=== PATIENT | female | born 1990 | race Caucasian/White ===

== ENCOUNTER 2019-02-18 09:34 | Emergency (ER) | payer OTHER ==
--- NOTE | 2019-02-18 10:40 | ED ---
Abdominal Pain/Female - HPI Summary HPI Summary: Patient is a 28 y/o female who presents to the ED c/o abdominal pain. Last week she was on vacation when she began to experience central back pain. Patient was taking Ibuprofen for this pain while continuing to drink alcohol. This morning at 8:45 she began to have severe burning epigastric abdominal pain. The pain has somewhat subsided and is currently rated a 5/10 in severity. Patient denies any N/V/D. The pain is made better by lying flat, and made worse by sitting up straight. LNMP 02/08/19. - History of Current Complaint Chief Complaint: EDAbdPain Stated Complaint: ABD PAIN PER PT SISTER Time Seen by Provider: 02/18/19 10:35 Hx Obtained From: Patient Onset/Duration: Gradual Onset, Lasting Weeks - 1, Still Present Timing: Constant Severity Initially: Severe Severity Currently: Moderate Pain Intensity: 5 Pain Scale Used: 0-10 Numeric Location: Epigastric Character: Burning Aggravating Factor(s): Other: - Sitting up straight Alleviating Factor(s): Position - Lying flat Associated Signs and Symptoms: Positive: Back Pain. Negative: Nausea, Vomiting , Diarrhea Allergies/Adverse Reactions: Allergies Allergy/AdvReac Type Severity Reaction Status Date / Time No Known Allergies Allergy Verified 02/18/19 09:51 PMH/Surg Hx/FS Hx/Imm Hx Endocrine/Hematology History: Denies: Hx Diabetes Cardiovascular History: Denies: Hx Hypertension Infectious Disease History: No Infectious Disease History: Denies: Traveled Outside the [place] in Last 30 Days - Family History Known Family History: Positive: Other - gallbladder dz, ulcer dz - Social History Alcohol Use: Occasionally Hx Substance Use: No Substance Use Type: Reports: None Review of Systems Positive: Abdominal Pain. Negative: Vomiting, Diarrhea, Nausea Positive: Myalgia - mid-back All Other Systems Reviewed And Are Negative: Yes Physical Exam - Summary Physical Exam Summary: Appearance: Well appearing, no pain distress Skin: warm, dry, reflects adequate perfusion Head/face: normal Eyes: EOMI, CHER ENT: mucous membranes moist Neck: supple, non-tender Respiratory: CTA, breath sounds present Cardiovascular: RRR, pulses symmetrical Abdomen: non-tender, soft Bowel Sounds: present Musculoskeletal: normal, strength/ROM intact Neuro: normal, sensory motor intact, A&Ox3 Triage Information Reviewed: Yes Vital Signs On Initial Exam: Initial Vitals Temp Pulse Resp BP Pulse Ox 98.6 F 92 18 145/92 100 02/18/19 09:51 02/18/19 09:51 02/18/19 09:51 02/18/19 09:51 02/18/19 09:51 Vital Signs Reviewed: Yes Diagnostics - Vital Signs Vital Signs Temp Pulse Resp BP Pulse Ox 02/18/19 09:51 98.6 F 92 18 145/92 100 - Laboratory Result Diagrams: 02/18/19 10:55 02/18/19 10:55 Lab Statement: Any lab studies that have been ordered have been reviewed, and results considered in the medical decision making process. Re-Evaluation - Re-Evaluation First Eval Re-Evaluation Time: 11:23 Change: Improved Comment: Pt feels much better. Abdominal Pain Fem Course/Dx - Course Course Of Treatment: Nurse's notes reviewed. Patient with acute epigastric discomfort after drinking on vacation and then using ibuprofen for some back pain. Her pain was totally resolved after oral medications for gastritis. Continue same outpatient. - Diagnoses Differential Diagnosis: Positive: Gall Bladder Disease, Pancreatitis, Peptic Ulcer Disease, Pneumonia Provider Diagnoses: Gastritis Discharge - Sign-Out/Discharge Documenting (check all that apply): Patient Departure - Discharge Patient Received Moderate/Deep Sedation with Procedure: No - Discharge Plan Condition: Improved Disposition: HOME Prescriptions: Famotidine TAB* [Pepcid 20 MG TAB*] 20 mg PO BID #10 tab Pantoprazole TAB * [Protonix TAB*] 40 mg PO DAILY #30 tab Sucralfate TAB* [Carafate*] 1 gm PO ACHS #40 tab Patient Education Materials: Gastritis (ED) Referrals: [facility] [Outside] [facility] [Outside] Additional Instructions: avoid alcohol, caffeine, ibuprofen/Aleve and like medications. Avoid spicy foods in your diet. Maalox may help if medications are not controlling this. Return with vomiting blood, uncontrolled pain, worse, new symptoms or other concerns. He can follow-up with the [facility] in the next 2 days ' time and physician referral line was given to you. - Billing Disposition and Condition Condition: IMPROVED Disposition: Home - Attestation Statements Document Initiated by Scribe: Yes Documenting Scribe: Krys Mckeon Provider For Whom Scribe is Documenting (Include Credential): Jonathan Jaime MD Scribe Attestation: I, Krys Mckeon, scribed for Jonathan Jaime MD on 02/18/19 at 1922. Scribe Documentation Reviewed: Yes Provider Attestation: The documentation as recorded by the scribe, Krys Mckeon accurately reflects the service I personally performed and the decisions made by me, Jonathan Jaime MD Status of Scribe Document: Viewed
[2019-02-18] MEDS ORDERED: Al Hydrox/Mg Hydrox/Simet LIQ* 30 ML UDC PO ONE (10:41)
[2019-02-18] MEDS ORDERED: Famotidine TAB* 20 MG PO ONE (10:41)
[2019-02-18] MEDS ORDERED: Sucralfate TAB* 1 GM PO ONE (10:41)
[2019-02-18 11:09] LABS: ABS Basophils 0 10^3/ul (0-0.2); ABS Eosinophils 0.1 10^3/ul (0-0.6); ABS Lymphocytes 1.3 10^3/ul (1.0-4.8); ABS Monocytes 0.5 10^3/ul (0-0.8); ABS Neutrophils 5.2 10^3/ul (1.5-7.7); ABS Nucleated RBC 0 10^3/ul; Eosinophil % 1.4 %; Hematocrit 42 % (33-41); Hemoglobin 14.2 g/dL (12.0-16.0); Lymphocyte % 18.3 %; Mean Corpuscular HGB Conc 34 g/dL (31-36); Mean Corpuscular Hemoglobin 34 pg (27-31); Mean Corpuscular Volume 98 fL (80-97); Nucleated Red Blood Cells % 0; Platelet Count 246 10^3/uL (150-450); Red Blood Count 4.25 10^6 /uL (3.70-4.87); Red Cell Distribution Width 12 % (10.5-15); White Blood Count 7.2 10^3/uL (3.5-10.8)
[2019-02-18 11:16] LABS: Albumin 4.6 g/dL (3.2-5.2); Calcium 9.2 mg/dL (8.6-10.3); Total Bilirubin 1.1 mg/dL (0.2-1.0)
[2019-02-18 11:22] LABS: Albumin/Globulin Ratio 1.6 (1-3); BUN/Creatinine Ratio 19.7 (8-20); EGFR African American 128.1 (>60); EGFR Non-African American 105.9 (>60); Globulin 2.8 g/dL (2-4); Total Protein 7.4 g/dL (6.4-8.9)
[2019-02-18 11:37] VITALS: BP 125/77
== END 2019-02-18 11:36 | disposition home or self-care (01) ==
LOC: ED 09:34
DX: K29.70 Gastritis, unspecified, without bleeding (principal); M54.6 Pain in thoracic spine
CPT/HCPCS: 36415; 80053; 83690; 85025; 99282; A9270-GY